=== PATIENT | female | born 1955 | race Caucasian/White ===

== ENCOUNTER 2017-05-01 13:41 | Emergency (ER) | payer BC ==
[2017-05-01 13:48] VITALS: BP 153/85
[2017-05-01] MEDS ORDERED: Acetaminophen/oxyCODONE 325-5 MG Tab PO ONE ×2 (13:55→14:04)
--- NOTE | 2017-05-01 13:58 | EDM.PDOC ---
ED HPI GENERAL MEDICAL PROBLEM - General Chief Complaint: Lower Extremity Injury/Pain Stated Complaint: [id number] RIGHT HIP Time Seen by Provider: 05/01/17 13:56 Source of Information: Reports: Patient History Limitations: Reports: No Limitations - History of Present Illness INITIAL COMMENTS - FREE TEXT/NARRATIVE: h/o severe osteoporosis, yesterday felt sudden sharp pain in right hip already has pins in left. Right Hip Pain Score (Numeric/FACES): 8 - Related Data Allergies Allergy/AdvReac Type Severity Reaction Status Date / Time iron Allergy Swollen Verified 05/01/17 14:01 Eyes Sulfa (Sulfonamide Allergy Swelling Verified 05/01/17 14:01 Antibiotics) Review of Systems - Review of Systems Review Of Systems: ROS reveals no pertinent complaints other than HPI. ED EXAM, GENERAL - Physical Exam Exam: See Below Exam Limited By: No Limitations General Appearance: Alert, WD/WN, Mild Distress, Other (tearful) Ears: Hearing Grossly Normal Throat/Mouth: Normal Voice, No Airway Compromise Head: Atraumatic Neck: Non-Tender, Full Range of Motion Respiratory/Chest: No Respiratory Distress Cardiovascular: Regular Rate, Rhythm GI/Abdominal: Soft, Non-Tender Neurological: Alert, Oriented, Normal Cognition, No Motor/Sensory Deficits, Other (gait limited to pain) Psychiatric: Tearful Skin Exam: Warm, Dry Lymphatic: No Adenopathy Course - Vital Signs Last Recorded V/S: Last Vital Signs Temp 36.2 C 05/01/17 13:47 Pulse 102 H 05/01/17 13:47 Resp 18 05/01/17 13:47 BP 153/85 H 05/01/17 13:47 Pulse Ox 99 05/01/17 13:47 - Orders/Labs/Meds Meds: Medications Discontinued Medications Generic Name Dose Route Start Last Admin Trade Name Freq PRN Reason Stop Dose Admin Oxycodone/Acetaminophen 1 tab 05/01/17 13:55 05/01/17 14:03 Percocet 325-5 Mg PO 05/01/17 13:56 1 tab ONETIME ONE Administration Oxycodone/Acetaminophen 1 tab 05/01/17 14:04 05/01/17 14:05 Percocet 325-5 Mg PO 05/01/17 14:05 1 tab ONETIME ONE Administration - Re-Assessments/Exams Free Text/Narrative Re-Assessment/Exam: 05/01/17 14:33 negative results discussed with Pt. Departure - Departure Time of Disposition: 14:33 Disposition: Home, Self-Care 01 Condition: good Clinical Impression: Sprain of hip - Discharge Information Instructions: Hip Pain Forms: ED Department Discharge Additional Instructions: 1) rest and avoid bending lifting straining 2) see family doctor for possible MRI SCAN of hip.
--- NOTE | 2017-05-01 14:24 | CT ---
Clinical history: 61-year-old female with osteoporosis and hip pain (associated with long automobile ride) who has had previous colon surgery and hysterectomy. Rule out pathologic skeletal lesion. Scan technique: Volume acquisition of data from the pelvis and proximal femurs obtained without oral or IV contrast while patient was lying supine on the Siemens multi slice scanner [place], [place]. All data archived in the PACS system for storage, reformatting and st udy (bone and soft tissue windows). Interpretation: 3 orthopedic nails extending through the left femoral neck with underlying arthritic changes of the ipsilateral left hip joint. No sign of pathologic skeletal lesion, acute pelvic or either hip fracture/dislocation. Symmetric spacing normal-appearing SI and the contralateral right hip joints. Hypertrophic marginal spondylosis lower lumbar spine. (Atheromatous calcifications iliac vessels). No foreign bodies in the pelvis, colonic diverticula, or inflammatory "dirty" peritoneal fat. No asc ites. CONCLUSION: Injury left hip. No pathologic skeletal lesion, fracture or dislocation.
== END 2017-05-01 14:51 | disposition home or self-care (01) ==
LOC: DL.ED 13:41
DX: S73.101A Unspecified sprain of right hip, initial encounter (principal); Z88.8 Allergy status to other drugs, medicaments and biological substances; Z88.2 Allergy status to sulfonamides; W19.XXXA Unspecified fall, initial encounter
CPT/HCPCS: 72192; 99283; A9270